=== PATIENT | female | born 1965 | race Caucasian/White ===

== ENCOUNTER 2016-07-22 21:02 | Inpatient (IN) | payer OTHER ==
[~2016-07-22] VITALS: Ht 170.2 cm; Wt 73.6 kg
[~2016-07-22 21:02] MED LIST: DOXY100T PO; HYDR10TA23 PO; MEDR4PAK3 PO
[2016-07-22 21:14] VITALS: BP 126/74; PULSE 72; RESP 18; TEMP 98; O2SAT 99
--- NOTE | 2016-07-22 21:29 | PD ---
HPI Chief Complaint: Pain: Acute or Chronic Time Seen by Provider: 22:00 (Tammi Brooks) Time Seen by Provider: 21:28 (Angie Buchanan MD) Travel History International Travel<30 days: No Contact w/Intl Traveler<30days: No Traveled to known affect area: No (Tammi Brooks) History of Present Illness HPI 51-year-old female is brought to the emergency department for evaluation of left elbow injury. 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 States she landed on her left elbow. Denies head trauma or loss of consciousness. States she has had pain and swelling in the left elbow since this occurred. Pain is aggravated with movement. Denies any alleviating factors. Denies any medical conditions. Denies anticoagulation. Denies , she is post menopausal. No other complaints. (Tammi Brooks) PFSH Past Medical History Medical History: Denies Significant Hx Immunizations Current: Yes Tetanus Vaccination: < 5 Years Influenza Vaccination: No ?: Not Menopausal: Yes : 1 Para: 1 (Tammi Brooks) Past Surgical History Surgical History: No Previous Surgery (Tammi Brooks) Social History Alcohol Use: Yes Tobacco Use: No Substance Use: No (Tammi Brooks) Allergies-Medications (Allergen,Severity, Reaction): Coded Allergies: No Known Allergies (Unverified , 07/22/16) Reported Meds & Prescriptions Reported Meds & Active Scripts Active (Angie Buchanan MD) Review of Systems Except as stated in HPI: all other systems reviewed are Neg (Tammi Brooks) Physical Exam Narrative GENERAL: Well-nourished and well-developed female patient in moderate amount of pain but no acute distress. SKIN: No obvious lacerations or abrasions noted. HEAD: Normocephalic and atraumatic. EYES: No scleral icterus, injection, or drainage. PERRLA. EOMI. No hyphema present. ENT: No septal hematoma or hemotympanum noted. Oropharynx is clear and the airway is patent. NECK: Supple and the trachea is midline. CARDIOVASCULAR: Regular rate and rhythm. RESPIRATORY: Breath sounds are equal bilaterally with no accessory muscle use, wheezing, rhonchi, or crackles. GASTROINTESTINAL: Abdomen is soft, non-tender, and nondistended. MUSCULOSKELETAL: Left elbow with obvious deformity and swelling, tenderness to palpation. Patient guarding left arm, not allowing any movement. No obvious deformities, swelling, cyanosis, or ecchymosis is present throughout the upper and lower extremities. Patient has full range of motion without any signs of neurovascular compromise. NEUROLOGICAL: Awake, alert, and oriented. Normal speech and gait. Cranial nerves are grossly intact. (Tammi Brooks) Data Data Last Documented VS Vital Signs Date Time Temp Pulse Resp B/P Pulse Ox O2 Delivery O2 Flow Rate FiO2 07/22/16 21:14 98.0 72 18 126/74 99 Room Air (Angie Buchanan MD) Orders Ice/Cold Pack (07/22/16 21:28) Complete Blood Count With Diff (07/22/16 21:28) Comprehensive Metabolic Panel (07/22/16 21:28) Prothrombin Time / Inr (Pt) (07/22/16 21:28) Act Partial Throm Time (Ptt) (07/22/16 21:28) Iv Access Insert/Monitor (07/22/16 21:28) Ecg Monitoring (07/22/16 21:28) Oximetry (07/22/16 21:28) Sodium Chloride 0.9% Flush (Ns Flush) (07/22/16 21:30) Elbow, Limited (Ap&Lat) (07/22/16 21:28) Propofol 200 Mg/20 Ml Inj (Diprivan 200 (07/22/16 22:30) Admit Order (Ed Use Only) (07/22/16 22:38) Consult Orthopedic (07/22/16 ) Admit To Inpatient (07/22/16 ) Vital Signs (Adult) Q4H (07/22/16 22:38) Activity Oob With Assistance (07/22/16 22:38) Electrical Instrument Technician / Telemetry .CONTINUOUS (07/22/16 22:38) Diet Npo (07/23/16 Breakfast) Sodium Chloride 0.9% Flush (Ns Flush) (07/22/16 22:45) Sodium Chloride 0.9% Flush (Ns Flush) (07/23/16 09:00) Basic Metabolic Panel (Bmp) (07/23/16 06:00) Complete Blood Count With Diff (07/23/16 06:00) Case Management Consult (07/22/16 22:38) Scd Bilateral/Knee High LIZY.BID (07/22/16 22:38) Naloxone Inj (Narcan Inj) (07/22/16 22:45) Inpatient Certification (07/22/16 ) Hydromorphone Pf Inj (Dilaudid Pf Inj) (07/22/16 22:45) (Angie Buchanan MD) Labs Laboratory Tests Test 07/22/16 07/22/16 21:28 21:37 White Blood Count 9.6 TH/MM3 Red Blood Count 4.11 MIL/MM3 Hemoglobin 13.1 GM/DL Hematocrit 37.8 % Mean Corpuscular Volume 92.1 FL Mean Corpuscular Hemoglobin 31.9 PG Mean Corpuscular Hemoglobin 34.6 % Concent Red Cell Distribution Width 12.1 % Platelet Count 176 TH/MM3 Mean Platelet Volume 8.5 FL Neutrophils (%) (Auto) 70.3 % Lymphocytes (%) (Auto) 21.5 % Monocytes (%) (Auto) 6.5 % Eosinophils (%) (Auto) 1.3 % Basophils (%) (Auto) 0.4 % Neutrophils # (Auto) 6.7 TH/MM3 Lymphocytes # (Auto) 2.1 TH/MM3 Monocytes # (Auto) 0.6 TH/MM3 Eosinophils # (Auto) 0.1 TH/MM3 Basophils # (Auto) 0.0 TH/MM3 CBC Comment DIFF FINAL Differential Comment Sodium Level 140 MEQ/L Potassium Level 3.9 MEQ/L Chloride Level 107 MEQ/L Carbon Dioxide Level 22.0 MEQ/L Anion Gap 11 MEQ/L Blood Urea Nitrogen 11 MG/DL Creatinine 0.81 MG/DL Estimat Glomerular Filtration 75 ML/MIN Rate Random Glucose 98 MG/DL Calcium Level 8.8 MG/DL Total Bilirubin 0.4 MG/DL Aspartate Amino Transf 20 U/L (AST/SGOT) Alanine Aminotransferase 27 U/L (ALT/SGPT) Alkaline Phosphatase 86 U/L Total Protein 6.9 GM/DL Albumin 3.8 GM/DL Prothrombin Time 10.7 SEC Prothromb Time International 1.0 RATIO Ratio Activated Partial 24.8 SEC Thromboplast Time (Angie Buchanan MD) [facility] Medical Decision Making Medical Screen Exam Complete: Yes Emergency Medical Condition: Yes Differential Diagnosis Dislocation versus fracture versus sprain versus contusion Narrative Course 51-year-old female presents to the emergency department for evaluation of left elbow injury status post slip and fall. No head trauma or loss of consciousness. Patient is afebrile, vital signs are stable. She has obvious deformities to her left elbow but her left arm is neurovascularly intact. X-ray imaging shows fracture dislocation of the ulnar humeral and radiocapitellar joints with comminuted fracture of the proximal ulna with avulsion of the coronoid process. After discussion with orthopedic surgeon parts control clerk, decision was made to reduce the fracture dislocation here in the emergency department. She'll be placed in a posterior long-arm splint and admitted to medicine with orthopedic consultation. I discussed the case with my attending physician Dr. Buchanan who is aware of the patients history, physical examination findings, and treatment plan. (Tammi Brooks) Physician Communication Physician Communication I spoke with Dr. Villavicencio, orthopedic surgeon, who reviewed the x-ray images and recommends close reduction with posterior long-arm splint and admission to medicine with orthopedic consultation, likely surgical repair tomorrow. I spoke with Dr. Porras [facility] who agrees to admit the patient to her service. ( Tammi Brooks) Diagnosis Primary Impression: Fracture dislocation of left elbow joint Qualified Code: S42.402A - Fracture dislocation of left elbow joint, closed, initial encounter Admitting Information Admitting Physician Requests: Admit (Tammi Brooks) Scripts No Active Prescriptions or Reported Meds Tammi Brooks Jul 22, 2016 21:29 Angie Buchanan MD Jul 23, 2016 00:01
[2016-07-22] MEDS ORDERED: SODIUM CHLORIDE 0.9% FLUSH 5 ML FLUSH IVF PRN (21:30)
[2016-07-22 22:25] LABS: AUTOMATED NEUTROPHIL # 6.7 TH/MM3 (1.8-7.7); BASOPHIL % 0.4 % (0.0-2.0); EOSINOPHIL # 0.1 TH/MM3 (0-0.4); EOSINOPHIL % 1.3 % (0.0-4.0); HEMATOCRIT 37.8 % (35.0-46.0); HEMO FLAGS DIFF FINAL; LYMPH % 21.5 % (9.0-44.0); LYMPHOCYTE # 2.1 TH/MM3 (1.0-4.8); MEAN CELL VOLUME 92.1 FL (80.0-100.0); MEAN CORPUSCULAR HEMOGLOBIN 31.9 PG (27.0-34.0); MEAN CORPUSCULAR HGB CONC 34.6 % (32.0-36.0); MONO % 6.5 % (0.0-8.0); NEUT % 70.3 % (16.0-70.0); PLATELET COUNT 176 TH/MM3 (150-450); RED BLOOD COUNT 4.11 MIL/MM3 (4.00-5.30); RED CELL DISTRIBUTION WIDTH 12.1 % (11.6-17.2); WHITE BLOOD COUNT 9.6 TH/MM3 (4.0-11.0)
[2016-07-22] MEDS ORDERED: PROPOFOL 200 MG/20 ML AMP IV ONE ×2 (22:30→23:00)
--- NOTE | 2016-07-22 22:31 | RADRPT ---
EXAM DATE/TIME: 07/22/2016 21:44 [facility] COMPARISON: No previous studies available for comparison. INDICATIONS : Left elbow pain post fall. MEDICAL HISTORY : None. SURGICAL HISTORY : None. ENCOUNTER: Initial ACUITY: 1 day PAIN SCORE: 10/10 LOCATION: Left elbow FINDINGS: A fracture dislocation is identified of the left elbow. Comminuted fracture is identified of the prox imal ulna. Small chip fracture is seen along the margin of the radial head. The coronoid process has been avulsed. Radius and ulnar are both posteriorly displaced CONCLUSION: Fracture/dislocation of the ulnohumeral and radiocapitellar joints. Comminuted fracture of the proximal ulna with avulsion of the coronoid process. Santy Florez MD on July 22, 2016 at 22:22 Board Certified Radiologist. This report was verified electronically.
[2016-07-22 22:39] LABS: APTT (PATIENT) 24.8 SEC (24.3-30.1); PROTHROMBIN TIME - PATIENT 10.7 SEC (9.8-11.6)
[2016-07-22] MEDS ORDERED: NALOXONE HCL 0.4 MG/ML AMP IV PRN (22:45)
[2016-07-22] MEDS ORDERED: SODIUM CHLORIDE 0.9% FLUSH 5 ML FLUSH FLUSH PRN (22:45)
[2016-07-22] MEDS ORDERED: HYDROmorphone HCL PF 1 MG/ML VIAL IV PUSH PRN (22:45)
[2016-07-22 23:02] LABS: ANION GAP 11 MEQ/L (5-15); AST (GOT) 20 U/L (15-37); BLOOD UREA NITROGEN 11 MG/DL (7-18); CHLORIDE 107 MEQ/L (98-107); GLOMERULAR FILTRATION RATE 75 ML/MIN (>89); POTASSIUM 3.9 MEQ/L (3.5-5.1); SODIUM (NA) 140 MEQ/L (136-145)
[2016-07-22 23:05] LABS: ALKALINE PHOSPHATASE 86 U/L (45-117); ALT (GPT) 27 U/L (10-53); TOTAL BILIRUBIN ADULT 0.4 MG/DL (0.2-1.0)
[2016-07-22 23:31] VITALS: BP 112/64; PULSE 80; RESP 18; O2SAT 98
--- NOTE | 2016-07-23 00:02 | RADRPT ---
EXAM DATE/TIME: 07/22/2016 22:59 [facility] COMPARISON: ELBOW LEFT LIMITED (AP & LAT), July 22, 2016, 21:44. INDICATIONS : Post reduction of left elbow fracture and dislocation. MEDICAL HISTORY : None. SURGICAL HISTORY : None. ENCOUNTER: Subsequent ACUITY: 1 day PAIN SCORE: 10/10 LOCATION: Left elbow FINDINGS: There is persistent anterior dislocation of the distal humeral trochlea and capitellum with comminute d fractures of the proximal ulna and radial head noted. Overlying soft tissue swelling. CONCLUSION: 1. Persistent fracture dislocation at the elbow joint with joint effusion. Randal Dougherty MD on July 22, 2016 at 23:58 Board Certified Radiologist. This report was verified electronically.
--- NOTE | 2016-07-23 00:03 | RADRPT ---
EXAM DATE/TIME: 07/22/2016 23:10 [facility] COMPARISON: No previous studies available for comparison. INDICATIONS : Post reduction of left elbow fracture and dislocation. MEDICAL HISTORY : None. SURGICAL HISTORY : None. ENCOUNTER: Subsequent ACUITY: 1 day PAIN SCORE: 10/10 LOCATION: Left elbow FINDINGS: There is improvement in alignment at the previous dislocation of the elbow with anterior subluxation of the distal humerus remaining at the humeroulnar joint. The radial head remains dislocated with a p ortion of the radial head avulsed. Positive joint effusion. CONCLUSION: 1. Improvement in alignment of fracture dislocation left elbow. Randal Dougherty MD on July 23, 2016 at 0:01 Board Certified Radiologist. This report was verified electronically.
--- NOTE | 2016-07-23 00:15 | HHI.HP ---
[facility] Service [facility] Primary Care Physician No Primary Care Physician Admission Diagnosis Left Elbow Fracture Dislocation Diagnoses: Chief Complaint: Left elbow pain Travel History International Travel<30 Days: No Contact w/Intl Traveler <30 Da: No Traveled to Known Affected Are: No History of Present Illness History taken from patient and the physician reviewed 51-year-old female with no significant history presented to the ED after slipping and falling on water and landing on her left elbow. She states she was at work and walked around a corner and slipped on a puddle of water and landed on her left elbow. She states the pain is throbbing and not currently controlled. The pain is made worse with any movement. She denies any chest pain, shortness of breath, fever or chills. Elbow was unable to be reduced by ER physician. Review of Systems Constitutional: DENIES: Fever Respiratory: DENIES: Cough, Sputum production, Shortness of breath Cardiovascular: DENIES: Chest pain, Lower Extremity Edema Gastrointestinal: DENIES: Constipation, Diarrhea, Nausea, Vomiting Musculoskeletal: COMPLAINS OF: Joint pain, Joint Swelling, DENIES: Back pain, Neck pain Integumentary: DENIES: Rash Hematologic/lymphatic: DENIES: Lymphadenopathy Immunologic/allergic: DENIES: Urticaria Neurologic: DENIES: Headache Past Family Social History Past Medical History Patient denies any medical history Past Surgical History Patient denies any surgical history Reported Medications Reported Meds & Active Scripts Active Allergies: Coded Allergies: No Known Allergies (Unverified , 07/22/16) Active Ordered Medications Current Medications Medications (Trade) Dose Ordered Sig/Reed Route Start Time Stop Time Status Last Admin (NS Flush) 2 ml UNSCH PRN FLUSH 07/22/16 22:45 (NS Flush) 2 ml BID FLUSH 07/23/16 09:00 (Narcan Inj) 0.4 mg UNSCH PRN IV 07/22/16 22:45 (Dilaudid Pf Inj) 1 mg Q4H PRN IV PUSH 07/22/16 22:45 07/22/16 23:32 Family History Grandfather: DM, heart disease Social History Tobacco use: Denies, quit 1989 Alcohol use: Occasionally Illicit drug use: Denies Physical Exam Vital Signs Vital Signs Date Time Temp Pulse Resp B/P Pulse Ox O2 Delivery O2 Flow Rate FiO2 07/22/16 21:14 98.0 72 18 126/74 99 Room Air Physical Exam GENERAL: This is a well-nourished, well-developed patient, in no apparent distress. SKIN: No rashes. Left elbow wrapped in a splint and Luis E bandage. HEAD: Atraumatic. Normocephalic. No temporal or scalp tenderness. EYES: Pupils equal round and reactive. Extraocular motions intact. No scleral icterus. No injection or drainage. ENT: Nose without bleeding, purulent drainage or septal hematoma. Airway patent. NECK: Trachea midline. No JVD or lymphadenopathy. Supple, nontender, no meningeal signs. CARDIOVASCULAR: Regular rate and rhythm without murmurs, gallops, or rubs. RESPIRATORY: Clear to auscultation. Breath sounds equal bilaterally. No wheezes , rales, or rhonchi. GASTROINTESTINAL: Abdomen soft, non-tender, nondistended. No guarding. MUSCULOSKELETAL: Extremities without clubbing, cyanosis, or edema. Left elbow in splint. Visible swelling. NEUROLOGICAL: Awake and alert. Motor and sensory grossly within normal limits apart from weakness due to fracture. Normal speech. Laboratory Laboratory Tests Test 07/22/16 07/22/16 21:28 21:37 White Blood Count 9.6 Red Blood Count 4.11 Hemoglobin 13.1 Hematocrit 37.8 Mean Corpuscular Volume 92.1 Mean Corpuscular Hemoglobin 31.9 Mean Corpuscular Hemoglobin 34.6 Concent Red Cell Distribution Width 12.1 Platelet Count 176 Mean Platelet Volume 8.5 Neutrophils (%) (Auto) 70.3 Lymphocytes (%) (Auto) 21.5 Monocytes (%) (Auto) 6.5 Eosinophils (%) (Auto) 1.3 Basophils (%) (Auto) 0.4 Neutrophils # (Auto) 6.7 Lymphocytes # (Auto) 2.1 Monocytes # (Auto) 0.6 Eosinophils # (Auto) 0.1 Basophils # (Auto) 0.0 CBC Comment DIFF FINAL Differential Comment Sodium Level 140 Potassium Level 3.9 Chloride Level 107 Carbon Dioxide Level 22.0 Anion Gap 11 Blood Urea Nitrogen 11 Creatinine 0.81 Estimat Glomerular Filtration 75 Rate Random Glucose 98 Calcium Level 8.8 Total Bilirubin 0.4 Aspartate Amino Transf 20 (AST/SGOT) Alanine Aminotransferase 27 (ALT/SGPT) Alkaline Phosphatase 86 Total Protein 6.9 Albumin 3.8 Prothrombin Time 10.7 Prothromb Time International 1.0 Ratio Activated Partial 24.8 Thromboplast Time Result Diagram: 07/22/16212707/22/162127 Imaging Last Impressions Elbow X-Ray 07/22/16 2302 Signed Impressions: Service Date/Time: Friday, July 22, 2016 23:10 - CONCLUSION: 1. Improvement in alignment of fracture dislocation left elbow. Randal Dougherty MD Upper Extremity CT 07/22/16 0000 Signed Impressions: Service Date/Time: July 00:25 - CONCLUSION: 1. Posterior dislocation of the radial head at the radiocapitellar joint with an avulsed radial head bone fragment present anterior to the capitellum. 2. Abnormal widening of the humeroulnar joint without current dislocation. Comminuted fracture proximal ulna. Distal humerus intact. Randal Dougherty MD Last Impressions Elbow X-Ray 07/22/162127 Signed Impressions: Service Date/Time: Friday, July 22, 2016 21:44 - CONCLUSION: Fracture/dislocation of the ulnohumeral and radiocapitellar joints. Comminuted fracture of the proximal ulna with avulsion of the coronoid process. Santy Florez MD Assessment and Plan Problem List: (1) Fracture dislocation of left elbow joint ICD Code: S42.402A Status: Acute Assessment and Plan 51-year-old female with no medical history presented with: Fracture dislocation of left elbow joint Images: Elbow x-ray shows Fracture/dislocation of the ulnohumeral and radiocapitellar joints. Comminuted fracture of the proximal ulna with avulsion of the coronoid process. CT upper extremity shows Posterior dislocation of the radial head at the radiocapitellar joint with an avulsed radial head bone fragment present anterior to the capitellum. 2. Abnormal widening of the humeroulnar joint without current dislocation. Comminuted fracture proximal ulna. Distal humerus intact. -Orthopedic consult -Pain management with IV Dilaudid -Continue ice cough to arm DVT prophylaxis: SCDs Written by Adriana Barbel [employer], acting as scribe for Dr. Porras on 07/23/16 at 0239. The documentation accurately reflects the work performed [id number] and decisions made by me and the physician Dr Porras on 07/23/16. The documentation accurately reflects the work performed [id number] by me on at 0239 Discussed Condition With Patient and ED physician Physician Certification 2 Midnight Certification Type: Admission for Inpatient Services Order for Inpatient Services The services are ordered in accordance with Medicare regulations or non- Medicare payer requirements, as applicable. In the case of services not specified as inpatient-only, they are appropriately provided as inpatient services in accordance with the 2-midnight benchmark. Estimated LOS (days): 2 days is the estimated time the patient will need to remain in the hospital, assuming treatment plan goals are met and no additional complications. Post-Hospital Plan: Home Problem Qualifiers (1) Fracture dislocation of left elbow joint: Qualified Code: S42.402A - Fracture dislocation of left elbow joint, closed, initial encounter Adriana Bush Jul 23, 2016 00:15 Trisha Porras MD Jul 23, 2016 08:14
--- NOTE | 2016-07-23 00:42 | PD ---
Physical Exam Date Seen by Provider: Jul 23, 2016 Time Seen by Provider: 23:45 Narrative GENERAL: Well-developed well-nourished female in no acute distress no respiratory distress NECK: Supple, trachea midline. No JVD or lymphadenopathy. CARDIOVASCULAR: Regular rate and rhythm without murmurs, gallops, or rubs. RESPIRATORY: Breath sounds equal bilaterally. No accessory muscle use. MUSCULOSKELETAL: No cyanosis, with deformity and marked edema of the left elbow distally extremity remains neurovascular tendon intact capillary refill brisk and less than 2 seconds per digit radial and ulnar pulses 2+ to palpation. Data Data Last Documented VS Vital Signs Date Time Temp Pulse Resp B/P Pulse Ox O2 Delivery O2 Flow Rate FiO2 07/22/16 21:14 98.0 72 18 126/74 99 Room Air Orders Ice/Cold Pack (07/22/16 21:28) Complete Blood Count With Diff (07/22/16 21:28) Comprehensive Metabolic Panel (07/22/16 21:28) Prothrombin Time / Inr (Pt) (07/22/16 21:28) Act Partial Throm Time (Ptt) (07/22/16 21:28) Iv Access Insert/Monitor (07/22/16 21:28) Ecg Monitoring (07/22/16 21:28) Oximetry (07/22/16 21:28) Sodium Chloride 0.9% Flush (Ns Flush) (07/22/16 21:30) Elbow, Limited (Ap&Lat) (07/22/16 21:28) Propofol 200 Mg/20 Ml Inj (Diprivan 200 (07/22/16 22:30) Admit Order (Ed Use Only) (07/22/16 22:38) Admit To Inpatient (07/22/16 ) Vital Signs (Adult) Q4H (07/22/16 22:38) Activity Oob With Assistance (07/22/16 22:38) Tool Crib Supervisor / Telemetry .CONTINUOUS (07/22/16 22:38) Sodium Chloride 0.9% Flush (Ns Flush) (07/22/16 22:45) Sodium Chloride 0.9% Flush (Ns Flush) (07/23/16 09:00) Basic Metabolic Panel (Bmp) (07/23/16 06:00) Complete Blood Count With Diff (07/23/16 06:00) Case Management Consult (07/22/16 22:38) Scd Bilateral/Knee High LIZY.BID (07/22/16 22:38) Naloxone Inj (Narcan Inj) (07/22/16 22:45) Inpatient Certification (07/22/16 ) Hydromorphone Pf Inj (Dilaudid Pf Inj) (07/22/16 22:45) Labs Laboratory Tests Test 07/22/16 07/22/16 21:28 21:37 White Blood Count 9.6 TH/MM3 Red Blood Count 4.11 MIL/MM3 Hemoglobin 13.1 GM/DL Hematocrit 37.8 % Mean Corpuscular Volume 92.1 FL Mean Corpuscular Hemoglobin 31.9 PG Mean Corpuscular Hemoglobin 34.6 % Concent Red Cell Distribution Width 12.1 % Platelet Count 176 TH/MM3 Mean Platelet Volume 8.5 FL Neutrophils (%) (Auto) 70.3 % Lymphocytes (%) (Auto) 21.5 % Monocytes (%) (Auto) 6.5 % Eosinophils (%) (Auto) 1.3 % Basophils (%) (Auto) 0.4 % Neutrophils # (Auto) 6.7 TH/MM3 Lymphocytes # (Auto) 2.1 TH/MM3 Monocytes # (Auto) 0.6 TH/MM3 Eosinophils # (Auto) 0.1 TH/MM3 Basophils # (Auto) 0.0 TH/MM3 CBC Comment DIFF FINAL Differential Comment Sodium Level 140 MEQ/L Potassium Level 3.9 MEQ/L Chloride Level 107 MEQ/L Carbon Dioxide Level 22.0 MEQ/L Anion Gap 11 MEQ/L Blood Urea Nitrogen 11 MG/DL Creatinine 0.81 MG/DL Estimat Glomerular Filtration 75 ML/MIN Rate Random Glucose 98 MG/DL Calcium Level 8.8 MG/DL Total Bilirubin 0.4 MG/DL Aspartate Amino Transf 20 U/L (AST/SGOT) Alanine Aminotransferase 27 U/L (ALT/SGPT) Alkaline Phosphatase 86 U/L Total Protein 6.9 GM/DL Albumin 3.8 GM/DL Prothrombin Time 10.7 SEC Prothromb Time International 1.0 RATIO Ratio Activated Partial 24.8 SEC Thromboplast Time [facility] Medical Record Reviewed: Yes Supervised Visit with PETE: Yes Interpretation(s) Vital Signs Date Time Temp Pulse Resp B/P Pulse Ox O2 Delivery O2 Flow Rate FiO2 07/22/16 21:14 98.0 72 18 126/74 99 Room Air CBC & BMP Diagram 07/22/16 21:28 Last Impressions Elbow X-Ray 07/22/168 Signed Impressions: Service Date/Time: Friday, July 22, 2016 21:44 - CONCLUSION: Fracture/dislocation of the ulnohumeral and radiocapitellar joints. Comminuted fracture of the proximal ulna with avulsion of the coronoid process. Santy Florez MD Elbow X-Ray 07/22/16 0000 Signed Impressions: Service Date/Time: Friday, July 22, 2016 22:59 - CONCLUSION: 1. Persistent fracture dislocation at the elbow joint with joint effusion. Randal Dougherty MD Differential Diagnosis Fracture dislocation neurovascular tendon injury Narrative Course Patient with marked edema and soft tissue swelling of the left elbow after a non -syncopal slip and fall on a wet floor at work; imaging study shows comminuted fracture dislocation of the left elbow Case discussed with on-call orthopedist requests patient to have reduction of the fracture dislocation in the emergency department After informed verbal and written consent for procedural sedation was accomplished with probable fall and then procedure for reduction of the fracture dislocation was used with traction countertraction and then gentle flexion however the proximal all fracture versus unstable is difficult to obtain satisfactory joint reduction--- this was discussed with on-call orthopedist who recommends splinting and CT CT of the elbow was performed with evidence of improved alignment of the fracture dislocation however persistent posterior dislocation with large joint effusion; post procedure patient remains neurovascular tendon intact with brisk capillary refill less than 2 seconds per digit and 2+ palpable radial and ulnar pulses of the left upper extremity. Patient is aware of plan for admission for surgical intervention and repair of fracture dislocation. Procedures Procedure Narrative After the risks and benefits were discussed the following procedure was performed: MODERATE SEDATION: The patient was placed on a cardiac cath rn and pulse oximetry. An ambu bag and suction was immediately available at bedside. The patient was monitored by the nurse. Oxygen saturation, heart rate and blood pressure were monitored. Procedural sedation was achieved using 200 mg and then on re attempt at closed reduction of the elbow and additional 100 mg of propofol was administered. The patient was observed until awake and alert. Procedural Sedation time in attendance was 45 minutes. Physician Communication Physician Communication discussed with review of images with Dr Syed --admit to medicine apply splint obtain CT elbow tonight and consult for surgical repair in the AM by Dr Hay Diagnosis Primary Impression: Fracture dislocation of left elbow joint Qualified Code: S42.402A - Fracture dislocation of left elbow joint, closed, initial encounter Admitting Information Admitting Physician Requests: Admit Scripts No Active Prescriptions or Reported Meds Angie Buchanan MD Jul 23, 2016 00:42
--- NOTE | 2016-07-23 01:03 | RADRPT ---
EXAM DATE/TIME: 07/23/2016 00:25 [facility] COMPARISON: No previous studies available for comparison. INDICATIONS : Fell on left elbow; dislocated per x-ray RADIATION DOSE: 42.57 CTDIvol (mGy) MEDICAL HISTORY : None SURGICAL HISTORY : None. ENCOUNTER: Initial ACUITY: 1 day PAIN SCALE: 9/10 LOCATION: Left elbow TECHNIQUE: Volumetric scanning of the elbow was performed. Using automated exposure control and adjustment of t he mA and/or kV according to patient size, radiation dose was kept as low as reasonably achievable to obtain optimal diagnostic quality images. FINDINGS: The radial head is posteriorly dislocated at the radiocapitellar joint with an avulsion through the a nterior aspect of the radial head. The avulsed bone fragment is anterior to the capitellum. There is some abnormal widening of the joint between the distal humerus trochlea and proximal ulna bu t no current dislocation. There is a comminuted fracture of the proximal ulna. Positive elbow joint e ffusion with extensive overlying soft tissue swelling. CONCLUSION: 1. Posterior dislocation of the radial head at the radiocapitellar joint with an avulsed radial head bone fragment present anterior to the capitellum. 2. Abnormal widening of the humeroulnar joint without current dislocation. Comminuted fracture proxim al ulna. Distal humerus intact. Randal Dougherty MD on July 23, 2016 at 0:53 Board Certified Radiologist. This report was verified electronically.
[2016-07-23] MEDS: HYDROmorphone HCL PF 1 MG/ML VIAL IV PUSH PRN ×2 (02:53→06:13)
[2016-07-23 03:53] LABS: AUTOMATED NEUTROPHIL # 7.7 TH/MM3 (1.8-7.7); BASOPHIL % 0.2 % (0.0-2.0); EOSINOPHIL % 0.3 % (0.0-4.0); HEMATOCRIT 35.9 % (35.0-46.0); HEMO FLAGS DIFF FINAL; LYMPH % 17.6 % (9.0-44.0); LYMPHOCYTE # 1.8 TH/MM3 (1.0-4.8); MEAN CORPUSCULAR HEMOGLOBIN 32.1 PG (27.0-34.0); MEAN CORPUSCULAR HGB CONC 34.9 % (32.0-36.0); MONO % 6.6 % (0.0-8.0); NEUT % 75.3 % (16.0-70.0); PLATELET COUNT 176 TH/MM3 (150-450); RED CELL DISTRIBUTION WIDTH 12.2 % (11.6-17.2); WHITE BLOOD COUNT 10.2 TH/MM3 (4.0-11.0)
[2016-07-23 04:18] LABS: BICARBONATE 26.3 MEQ/L (21.0-32.0); POTASSIUM 4.2 MEQ/L (3.5-5.1)
[2016-07-23 06:19] VITALS: BP 130/62; PULSE 62; RESP 18; O2SAT 96
--- NOTE | 2016-07-23 07:34 | PD.ORT.PN ---
Subjective Subjective Remarks s/p fall at work left elbow pain. no other complaints. Objective Vitals Vital Signs Date Time Temp Pulse Resp B/P Pulse Ox O2 Delivery O2 Flow Rate FiO2 07/23/16 06:19 62 18 130/62 96 Room Air 07/22/16 23:31 80 18 112/64 98 Room Air 07/22/16 21:14 98.0 72 18 126/74 99 Room Air Result Diagram: 07/23/16 0329 07/23/16 0329 Other Results Laboratory Tests Test 07/22/16 21:37 Prothrombin Time 10.7 SEC (9.8-11.6) Prothromb Time International 1.0 RATIO Ratio Imaging Last 24 hours Impressions Elbow X-Ray 07/22/162 Signed Impressions: Service Date/Time: Friday, July 22, 2016 23:10 - CONCLUSION: 1. Improvement in alignment of fracture dislocation left elbow. Randal Dougherty MD Elbow X-Ray 07/22/162127 Signed Impressions: Service Date/Time: Friday, July 22, 2016 21:44 - CONCLUSION: Fracture/dislocation of the ulnohumeral and radiocapitellar joints. Comminuted fracture of the proximal ulna with avulsion of the coronoid process. Santy Florez MD Objective Remarks LUE: +long arm splint. nvi. Assessment & Plan Assessment and Plan 1) Left Elbow dislocation with radial head and proximal ulna fxs -maintain splint -npo -sign consents -possible surgery today Nikunj Lee Jul 23, 2016 07:34
[2016-07-23 08:17] VITALS: BP 109/63; PULSE 68; RESP 20; O2SAT 97
[2016-07-23] MEDS: SODIUM CHLORIDE 0.9% FLUSH 5 ML FLUSH FLUSH SCH ×2 (08:53→21:04)
[2016-07-23] MEDS ORDERED: HYDROmorphone HCL PF 2 MG/ML VIAL ONE (09:37)
[2016-07-23] MEDS ORDERED: FAMOTIDINE 20 MG/2 ML VIAL ONE (09:37)
[2016-07-23] MEDS ORDERED: ONDANSETRON HCL 4 MG/2 ML VIAL ONE (09:37)
[2016-07-23] MEDS ORDERED: MIDAZOLAM HCL 2 MG/2 ML VIAL ONE (09:37)
--- NOTE | 2016-07-23 09:56 | HHI.PR ---
Subjective Remarks Follow-up left elbow fracture 07/23/16-patient seen and examined, nothing by mouth pending surgical repair. Pain currently controlled. Objective Vitals Vital Signs Date Time Temp Pulse Resp B/P Pulse Ox O2 Delivery O2 Flow Rate FiO2 07/23/16 08:17 68 20 109/63 97 Room Air 07/23/16 07:00 20 07/23/16 06:19 62 18 130/62 96 Room Air 07/22/16 23:31 80 18 112/64 98 Room Air 07/22/16 21:14 98.0 72 18 126/74 99 Room Air Result Diagram: 07/23/16 0329 07/23/16 0329 Imaging Last Impressions Elbow X-Ray 07/22/16 2302 Signed Impressions: Service Date/Time: Friday, July 22, 2016 23:10 - CONCLUSION: 1. Improvement in alignment of fracture dislocation left elbow. Randal Dougherty MD Upper Extremity CT 07/22/16 0000 Signed Impressions: Service Date/Time: July 00:25 - CONCLUSION: 1. Posterior dislocation of the radial head at the radiocapitellar joint with an avulsed radial head bone fragment present anterior to the capitellum. 2. Abnormal widening of the humeroulnar joint without current dislocation. Comminuted fracture proximal ulna. Distal humerus intact. Randal Dougherty MD Objective Remarks GENERAL: NAD SKIN: Warm and dry. HEAD: Normocephalic. EYES: No scleral icterus. No injection or drainage. NECK: Supple, trachea midline. No JVD or lymphadenopathy. CARDIOVASCULAR: Regular rate and rhythm without murmurs, gallops, or rubs. RESPIRATORY: Breath sounds equal bilaterally. No accessory muscle use. GASTROINTESTINAL: Abdomen soft, non-tender, nondistended. MUSCULOSKELETAL: No cyanosis, or edema. Left elbow in splint-neurovascular intact BACK: Nontender without obvious deformity. No CVA tenderness. A/P Problem List: (1) Fracture dislocation of left elbow joint ICD Code: S42.402A Status: Acute Assessment and Plan 51-year-old female with Left elbow fracture: Currently nothing by mouth, orthopedic surgery consulted for open reduction internal fixation today 07/23/16. DVT prophylaxis post procedure. Continue current pain management DVT prophylaxis; per orthopedic surgery Problem Qualifiers (1) Fracture dislocation of left elbow joint: Qualified Code: S42.402A - Fracture dislocation of left elbow joint, closed, initial encounter Vance Stephen MD Jul 23, 2016 09:56
[2016-07-23] MEDS ORDERED: GENTAMICIN SULFATE 80 MG/2 ML VIAL ONE (10:21)
[2016-07-23] MEDS ORDERED: SODIUM CHLOR 0.9% 250 ML INJ 250 ML ONE (10:21)
[2016-07-23] MEDS ORDERED: ceFAZolin 2 GM PREMIX 50 ML ONE (10:21)
[2016-07-23] MEDS ORDERED: VANCOMYCIN HCL 1000 MG VIAL ONE (10:21)
[2016-07-23] MEDS ORDERED: ACETAMINOPHEN 1000 MG/100 ML VIAL IV ONE (10:40)
[2016-07-23] MEDS ORDERED: LACTATED RINGER'S 1000 ML INJ 1,000 ML IV ONE (12:00)
[2016-07-23] MEDS ORDERED: PROPOFOL 200 MG/20 ML AMP IV ONE (12:00)
[2016-07-23] MEDS ORDERED: NEOSTIGMINE 3 MG/3 ML SYR IV ONE (12:00)
--- NOTE | 2016-07-23 12:22 | MB ---
cc: AUREA MICHELLE DATE OF ADMISSION 07/22/2016 DATE OF CONSULTATION 07/23/2016 REASON FOR CONSULTATION Left elbow fracture-dislocation. CONSULTING PHYSICIAN Dr. Vance Stephen ALAN Blake is a 51-year-old female who was at work. She slipped and fell on a wet floor. She landed on her left arm. She had immediate pain and deformity. She was able to stand and ambulate. She presented to the emergency room where x-rays revealed a fracture-dislocation of her left elbow. She underwent a closed reduction in the emergency department. She is currently awake and alert in the emergency department. Only complaint is her left elbow. She states that a coworker had spilled some water and had mopped it up but the floor was still wet. She did not realize the floor was wet before she slipped. She denies dizziness, syncope or loss of consciousness. PAST MEDICAL HISTORY ILLNESSES None. SURGERIES None. ALLERGIES None. SOCIAL HISTORY The patient quit smoking in 1989. She drinks alcohol occasionally. She denies drug use. FAMILY HISTORY This positive for diabetes and heart disease in her grandfather. REVIEW OF SYSTEMS The patient denies headache, visual changes, neck pain, chest pain, shortness of breath, abdominal pain, nausea or vomiting or recent weight loss. She complains of left elbow pain. PHYSICAL EXAMINATION GENERAL: The patient is a well-developed, well-nourished 51-year female in no acute distress. She is awake and alert. She is alert and oriented x 3. VITAL SIGNS: Temperature 98.0, pulse 68, respirations 20, blood pressure 109/63, O2 sat 97% on room air. HEAD: The patient is normocephalic. Pupils are equal. NECK: Soft, nontender. Trachea is midline. ABDOMEN: Soft, nontender, nondistended. EXTREMITIES: Examination of the left arm reveals minimal tenderness around her shoulder, wrist and fingers. She has intact sensation in all fingers. She has swelling of the elbow. She has pain with any elbow motion. Forearm compartments are soft. Radial pulses palpable. Sensation is intact in all fingers. Examination of right arm reveals no pain with shoulder, elbow or wrist motion. Skin is intact. Radial pulses palpable. Sensation is intact in all fingers. Nitrating Acid Mixer strength is +5. Examination of the bilateral lower extremities reveals no significant pain with hip, knee, or ankle motion. Skin is intact in both feet. Dorsalis pedis pulses are palpable. X-RAYS X-rays and CT scan of the left elbow were reviewed. X-rays reveal a comminuted proximal ulnar fracture. There appears to be an avulsion of the coronoid process. There is also a radial head fracture dislocation. IMPRESSION Fracture-dislocation of the left elbow. PLAN The treatment options were discussed with the patient. At this point I would recommend open reduction, internal fixation of the proximal ulna. I evaluated the radial head. The radial head fragment may be excised or possibly stabilized with internal fixation. She will she also need open reduction of the radial head. The risks of surgery include bleeding, infection, injury to arteries, nerves or blood vessels, injury to ulnar nerve, elbow dislocation, elbow arthritis, painful hardware, elbow stiffness, loss of motion, as well as medical complications including blood clot, stroke, heart attack and . All questions were answered. I will plan on surgery today. A mid-level provider in my office (nurse practitioner or physician press assistant and feeder) may see this patient on follow-up visits and continue to implement the objectives of this plan including: Starting or adjusting medications, injections , cast application, orthotics, brace application, physical therapy, radiological studies (including x-ray, MRI, CT, ultrasound, bone scan), vascular studies, neurologic studies, specialist consultation, and proceeding with surgical management, as appropriate. MD MANDY Dao/ESTELITA /10:48 AM /12:15 PM ERIKA
[2016-07-23] MEDS ORDERED: Post-op Orders (for Pharmacy) MISC XX ONE (12:30)
--- NOTE | 2016-07-23 12:36 | PD.OP ---
cc: Kai Thibodeaux MD Operative Report Date of Surgery: Jul 23, 2016 Preoperative Diagnosis: Left proximal ulna fracture, left radial head fracture, left elbow dislocation Postoperative Diagnosis: Procedure: Open treatment left elbow dislocation, open reduction internal fixation left radial head, open reduction internal fixation left proximal ulna Anesthesia: Gen. Surgeon: Kai Thibodeaux Stitcher Tape Controlled Machine(s): PAM Willis PA-C The surgical procedure was assisted by my physician assistant merchandiser. My P.A. presence was necessary throughout this case for the manipulation and positioning of the surgical extremity. My P.A. was assisting me throughout the duration of this procedure. The skill set of a physician assistant merchandiser was medically necessary to complete this procedure. During the surgical case the surgical first assistant was working at the back table and the physician assistant merchandiser was directly assisting me. Operation and Findings: Patient was seen and evaluated preoperatively. Patient was found to have a displaced fracture dislocation of the left olecranon with radial head fracture. The risk and benefits of the surgery were discussed in depth and informed consent was obtained. Risk of surgery include bleeding, infection, painful hardware, wound, case, elbow stiffness, elbow dislocation, loss of motion, elbow arthritis, injuries to arteries nerves or blood vessels, weakness and numbness of hand, as well as medical complications associated with general anesthesia. All questions were answered. Patient was brought to operating room. IV sedation and anesthesia were administered. Patient was placed into a lateral decubitus position. Timeout procedure was performed. IV antibiotics were administered prior to incision. The operative arm was prepped with alcohol followed by Hibiclens and draped in usual sterile fashion. Procedure began with a 6 inch incision over the olecranon. Subcutaneous tissue dissected with Bovie. Fracture site was visualized. Fascia was elevated around the fracture site. There was mild comminution of the fracture site. Fracture fragments were gently manipulated. A fracture tenaculum was used to aid in reduction. Multiple K wires were used for provisional fixation. Next attention was turned to the radial head. The radial head was visualized. The radial head was in 3 fragments. The largest fragment was still attached to the radial shaft. The other 2 fragments consisted of approximate 40% of the radial head. Radial head fragments were reduced. K wires were used to hold provisional fixation. 2 Synthes 2.5 headless screws were placed across the fracture. Good compression was obtained. 2 additional Arthrex bioabsorbable pins were placed across the fracture fragments. Fluoroscopy confirmed excellent alignment of the radial head. The radial head was now reduced. Attention was now turned back to the ulna. The reduction of the ulna was confirmed. A Synthes proximal plate was selected. Plate was provisionally held with K wires 3.5 cortical screws were used to compress plate to bone. Multiple cortical screws were placed in the ulna shaft. Multiple locking screws were placed in the proximal ulna. All screws were predrilled and premeasured for appropriate length. Additional 2.7 cortical screws were placed outside of the plate to capture additional metaphyseal fragments. K wires were removed. Final fluoroscopy revealed excellent of fractures well-placed hardware. Articular surface appeared to be in near anatomic alignment. The elbow joint and radiocapitellar joints were concentrically reduced. Wound was now thoroughly irrigated. Incision was now closed with #1 Vicryl, 3-0 Vicryl, and diallo. Sterile dressings were applied. Patient's placed a well molded well-padded splint. Patient was transferred to recovery in stable condition. Kai Thibodeaux MD Jul 23, 2016 12:36
[2016-07-23] MEDS ORDERED: DO NOT ADM ANY ANTICOAGULANT DRUGS XX PRN (13:00)
[2016-07-23] MEDS ORDERED: *MEPERIDINE 25 MG INJ VIAL PERIprocedural Use ONLY ONE (13:13)
[2016-07-23] MEDS ORDERED: *morphine SULFATE 8 MG/ML PERIprocedure ONLY ONE ×2 (13:44→14:21)
[2016-07-23] MEDS: KETOROLAC TROMETHAMINE 30 MG/ML (IVP) VIAL IV PUSH SCH ×2 (13:44→21:03)
--- NOTE | 2016-07-23 14:37 | RADRPT ---
EXAM DATE/TIME: 07/23/2016 12:16 [facility] COMPARISON: No previous studies available for comparison. INDICATIONS : ORIF left elbow. MEDICAL HISTORY : None. SURGICAL HISTORY : None. ENCOUNTER: Subsequent ACUITY: 2 days PAIN SCORE: Non-responsive. LOCATION: Left elbow. FINDINGS: Two view left elbow demonstrates the olecranon has been fixated with a posterior plate. There are tw o screws across the radial head fracture. The radiocapitellar joints now well aligned. Distal humer us is unremarkable. CONCLUSION: Fracture fixation with what appears to be excellent alignment. Scot Kenny MD on July 23, 2016 at 13:58 Board Certified Radiologist. This report was verified electronically.
[2016-07-23] MEDS ORDERED: fentaNYL CITRATE 250 MCG/5 ML AMP ONE (14:47)
[2016-07-23] MEDS: ceFAZolin 2 GM PREMIX 50 ML IV SCH ×2 (14:47→21:03)
[2016-07-23 15:45] VITALS: BP 129/74; PULSE 66; RESP 18; TEMP 95.5; O2SAT 98
[2016-07-23] MEDS: ACETAMINOPHEN/HYDROcodone 325 MG/10 MG TAB PO PRN ×2 (16:19→20:43)
[2016-07-23 19:39] VITALS: BP 105/70; PULSE 93; RESP 18; TEMP 96; O2SAT 96
[2016-07-23] MEDS: MORPHINE SULFATE 4 MG/ML INJ IV PUSH PRN (22:42)
--- NOTE | 2016-07-23 23:36 | EKG ---
Date Performed: 07/23/2016 Time Performed: 10:38:14 PTAGE: 51 years EKG: SINUS BRADYCARDIA WITH SINUS ARRHYTHMIA BORDERLINE ECG NO PREVIOUS TRACING DOCTOR: Jeramy Encarnacion Interpretating Date/Time 07/23/2016 23:34:34
[2016-07-24] VITALS: BP 99/59; PULSE 84; RESP 18; TEMP 97.3; O2SAT 96
[2016-07-24 04:00] VITALS: BP 116/67; PULSE 75; RESP 18; TEMP 97.7; O2SAT 96
[2016-07-24] MEDS: KETOROLAC TROMETHAMINE 30 MG/ML (IVP) VIAL IV PUSH SCH (05:41)
[2016-07-24] MEDS: ceFAZolin 2 GM PREMIX 50 ML IV SCH (05:41)
[2016-07-24] MEDS: ACETAMINOPHEN/HYDROcodone 325 MG/10 MG TAB PO PRN (05:48)
--- NOTE | 2016-07-24 07:10 | PD.ORT.PN ---
Subjective Subjective Remarks POD 1 s/p ORIF left ulna and radial head doing well. pain controlled. Objective Vitals Vital Signs Date Time Temp Pulse Resp B/P Pulse Ox O2 Delivery O2 Flow Rate FiO2 07/24/16 04:00 97.7 75 18 116/67 96 07/24/16 00:00 97.3 84 18 99/59 96 07/23/16 19:39 96.0 93 18 105/70 96 07/23/16 15:45 95.5 66 18 129/74 98 07/23/16 14:30 97.7 68 14 134/72 96 Nasal Cannula 2 07/23/16 14:15 78 15 158/84 99 Nasal Cannula 2 07/23/16 14:00 62 15 154/81 99 Nasal Cannula 2 07/23/16 13:45 66 14 152/81 100 Nasal Cannula 2 07/23/16 13:31 62 14 168/78 97 Nasal Cannula 2 07/23/16 13:15 62 15 160/81 99 Nasal Cannula 2 07/23/16 13:08 97.8 74 15 168/82 96 Nasal Cannula 3 07/23/16 08:17 68 20 109/63 97 Room Air I/O 07/23/16 07/23/16 07/23/16 07/24/16 07/24/16 07/24/16 07:00 15:00 23:00 07:00 15:00 23:00 Intake Total 1200 ml 480 ml Output Total 450 ml 200 ml Balance 750 ml -200 ml 480 ml Intake Oral 480 ml IV Total 200 ml Other 1000 ml Output Urine Total 150 ml Emesis 200 ml Estimated Blood Loss 300 ml # Voids 1 1 3 4 # Bowel Movements 0 Result Diagram: 07/23/16 0329 07/23/16 0329 Imaging Last 24 hours Impressions Elbow X-Ray 07/22/162 Signed Impressions: Service Date/Time: Friday, July 22, 2016 23:10 - CONCLUSION: 1. Improvement in alignment of fracture dislocation left elbow. Randal Dougherty MD Elbow X-Ray 07/22/162127 Signed Impressions: Service Date/Time: Friday, July 22, 2016 21:44 - CONCLUSION: Fracture/dislocation of the ulnohumeral and radiocapitellar joints. Comminuted fracture of the proximal ulna with avulsion of the coronoid process. Santy Florez MD Objective Remarks LUE: +long arm splint. nvi. clean and dry. +swelling of fingers and hand Assessment & Plan Assessment and Plan 1) Left Elbow dislocation with radial head and proximal ulna fxs s/p ORIF - POD 1 -maintain splint -NWB -once ambulating and safe with pain controlled, ortho cleared for DC home -f/u with Satnam or PA in 1 week Nikunj Lee Jul 24, 2016 07:10
[2016-07-24] MEDS ORDERED: HYDR-3366 PO (07:12)
[2016-07-24] MEDS ORDERED: PERC7.5T13 PO ×2 (07:21→07:32)
[2016-07-24] MEDS ORDERED: ZOFR4TAB PO (07:21)
[2016-07-24] MEDS: MORPHINE SULFATE 4 MG/ML INJ IV PUSH PRN (07:23)
[2016-07-24] MEDS: ONDANSETRON HCL 4 MG/2 ML VIAL IV PRN ×2 (07:27→14:31)
--- NOTE | 2016-07-24 07:51 | HHI.PR ---
Subjective Remarks Follow-up left elbow fracture 07/23/16-patient seen and examined, nothing by mouth pending surgical repair. Pain currently controlled. Objective Vitals Vital Signs Date Time Temp Pulse Resp B/P Pulse Ox O2 Delivery O2 Flow Rate FiO2 07/24/16 04:00 97.7 75 18 116/67 96 07/24/16 00:00 97.3 84 18 99/59 96 07/23/16 19:39 96.0 93 18 105/70 96 07/23/16 15:45 95.5 66 18 129/74 98 07/23/16 14:30 97.7 68 14 134/72 96 Nasal Cannula 2 07/23/16 14:15 78 15 158/84 99 Nasal Cannula 2 07/23/16 14:00 62 15 154/81 99 Nasal Cannula 2 07/23/16 13:45 66 14 152/81 100 Nasal Cannula 2 07/23/16 13:31 62 14 168/78 97 Nasal Cannula 2 07/23/16 13:15 62 15 160/81 99 Nasal Cannula 2 07/23/16 13:08 97.8 74 15 168/82 96 Nasal Cannula 3 07/23/16 08:17 68 20 109/63 97 Room Air I/O 07/23/16 07/23/16 07/23/16 07/24/16 07/24/16 07/24/16 07:00 15:00 23:00 07:00 15:00 23:00 Intake Total 1200 ml 545 ml Output Total 450 ml 200 ml Balance 750 ml -200 ml 545 ml Intake Oral 480 ml IV Total 200 ml 65 ml Other 1000 ml Output Urine Total 150 ml Emesis 200 ml Estimated Blood Loss 300 ml # Voids 1 1 3 4 # Bowel Movements 0 Result Diagram: 07/23/16 0329 07/23/16 0329 Objective Remarks GENERAL: NAD SKIN: Warm and dry. HEAD: Normocephalic. EYES: No scleral icterus. No injection or drainage. NECK: Supple, trachea midline. No JVD or lymphadenopathy. CARDIOVASCULAR: Regular rate and rhythm without murmurs, gallops, or rubs. RESPIRATORY: Breath sounds equal bilaterally. No accessory muscle use. GASTROINTESTINAL: Abdomen soft, non-tender, nondistended. MUSCULOSKELETAL: No cyanosis, or edema. Left elbow in splint-neurovascular intact BACK: Nontender without obvious deformity. No CVA tenderness. Procedures Open treatment left elbow dislocation, open reduction internal fixation left radial head, open reduction internal fixation left proximal ulna A/P Problem List: (1) Fracture dislocation of left elbow joint ICD Code: S42.402A Status: Acute Assessment and Plan 51-year-old female with Left elbow fracture: s/p Open treatment left elbow dislocation, open reduction internal fixation left radial head, open reduction internal fixation left proximal ulna 07/23/16. DVT prophylaxis post procedure. Continue current pain management DVT prophylaxis; per orthopedic surgery Problem Qualifiers (1) Fracture dislocation of left elbow joint: Qualified Code: S42.402A - Fracture dislocation of left elbow joint, closed, initial encounter Vance Stephen MD Jul 24, 2016 07:51
[2016-07-24 08:00] VITALS: BP 124/71; PULSE 69; RESP 16; TEMP 97.6; O2SAT 96
--- NOTE | 2016-07-24 08:44 | HHI.PR ---
Subjective Remarks Follow-up left elbow fracture 07/23/16-patient seen and examined, nothing by mouth pending surgical repair. Pain currently controlled. 07/24/16-patient seen and examined, she started post left elbow repair. Complains of episode of nausea and emesis. Afebrile Objective Vitals Vital Signs Date Time Temp Pulse Resp B/P Pulse Ox O2 Delivery O2 Flow Rate FiO2 07/24/16 04:00 97.7 75 18 116/67 96 07/24/16 00:00 97.3 84 18 99/59 96 07/23/16 19:39 96.0 93 18 105/70 96 07/23/16 15:45 95.5 66 18 129/74 98 07/23/16 14:30 97.7 68 14 134/72 96 Nasal Cannula 2 07/23/16 14:15 78 15 158/84 99 Nasal Cannula 2 07/23/16 14:00 62 15 154/81 99 Nasal Cannula 2 07/23/16 13:45 66 14 152/81 100 Nasal Cannula 2 07/23/16 13:31 62 14 168/78 97 Nasal Cannula 2 07/23/16 13:15 62 15 160/81 99 Nasal Cannula 2 07/23/16 13:08 97.8 74 15 168/82 96 Nasal Cannula 3 I/O 07/23/16 07/23/16 07/23/16 07/24/16 07/24/16 07/24/16 07:00 15:00 23:00 07:00 15:00 23:00 Intake Total 1200 ml 545 ml Output Total 450 ml 200 ml Balance 750 ml -200 ml 545 ml Intake Oral 480 ml IV Total 200 ml 65 ml Other 1000 ml Output Urine Total 150 ml Emesis 200 ml Estimated Blood Loss 300 ml # Voids 1 1 3 4 # Bowel Movements 0 Result Diagram: 07/23/16 0329 07/23/16 0329 Imaging Last Impressions Elbow X-Ray 07/23/16 0000 Signed Impressions: Service Date/Time: July 12:16 - CONCLUSION: Fracture fixation with what appears to be excellent alignment. Scot Kenny MD Upper Extremity CT 07/22/16 0000 Signed Impressions: Service Date/Time: July 00:25 - CONCLUSION: 1. Posterior dislocation of the radial head at the radiocapitellar joint with an avulsed radial head bone fragment present anterior to the capitellum. 2. Abnormal widening of the humeroulnar joint without current dislocation. Comminuted fracture proximal ulna. Distal humerus intact. Randal Dougherty MD Objective Remarks GENERAL: NAD SKIN: Warm and dry. HEAD: Normocephalic. EYES: No scleral icterus. No injection or drainage. NECK: Supple, trachea midline. No JVD or lymphadenopathy. CARDIOVASCULAR: Regular rate and rhythm without murmurs, gallops, or rubs. RESPIRATORY: Breath sounds equal bilaterally. No accessory muscle use. GASTROINTESTINAL: Abdomen soft, non-tender, nondistended. MUSCULOSKELETAL: No cyanosis, or edema. Left elbow repair-neurovascular intact BACK: Nontender without obvious deformity. No CVA tenderness. Procedures Open treatment left elbow dislocation, open reduction internal fixation left radial head, open reduction internal fixation left proximal ulna A/P Problem List: (1) Fracture dislocation of left elbow joint ICD Code: S42.402A Status: Acute Assessment and Plan 51-year-old female with 1-Left elbow fracture: s/p Open treatment left elbow dislocation, open reduction internal fixation left radial head, open reduction internal fixation left proximal ulna 07/23/16. Management per orthopedic surgery.. Continue current pain management 2-DVT prophylaxis: Bilateral SCDs Problem Qualifiers (1) Fracture dislocation of left elbow joint: Qualified Code: S42.402A - Fracture dislocation of left elbow joint, closed, initial encounter Vance Stephen MD Jul 24, 2016 08:44
--- NOTE | 2016-07-24 08:46 | HHI.DS ---
Discharge Summary Admission Date Jul 22, 2016 at 22:40 Discharge Date: Jul 24, 2016 Admitting Diagnosis Left Elbow Fracture Dislocation (1) Fracture dislocation of left elbow joint ICD Code: S42.402A Procedures Open treatment left elbow dislocation, open reduction internal fixation left radial head, open reduction internal fixation left proximal ulna Brief History - From Admission History taken from patient and the physician reviewed 51-year-old female with no significant history presented to the ED after slipping and falling on water and landing on her left elbow. She states she was at work and walked around a corner and slipped on a puddle of water and landed on her left elbow. She states the pain is throbbing and not currently controlled. The pain is made worse with any movement. She denies any chest pain, shortness of breath, fever or chills. Elbow was unable to be reduced by ER physician. CBC/BMP: 07/23/16 0329 07/23/16 0329 Significant Findings Laboratory Tests Test 07/22/16 07/23/16 21:28 03:29 Neutrophils (%) (Auto) 70.3 % 75.3 % (16.0-70.0) (16.0-70.0) Estimat Glomerular Filtration 75 ML/MIN (>89) 82 ML/MIN (>89) Rate Red Blood Count 3.90 MIL/MM3 (4.00-5.30) Calcium Level 8.4 MG/DL (8.5-10.1) PE at Discharge GENERAL: NAD SKIN: Warm and dry. HEAD: Normocephalic. EYES: No scleral icterus. No injection or drainage. NECK: Supple, trachea midline. No JVD or lymphadenopathy. CARDIOVASCULAR: Regular rate and rhythm without murmurs, gallops, or rubs. RESPIRATORY: Breath sounds equal bilaterally. No accessory muscle use. GASTROINTESTINAL: Abdomen soft, non-tender, nondistended. MUSCULOSKELETAL: No cyanosis, or edema. Left elbow repair-neurovascular intact BACK: Nontender without obvious deformity. No CVA tenderness. Hospital Course She underwent Open treatment left elbow dislocation, open reduction internal fixation left radial head, open reduction internal fixation left proximal ulna of the Left elbow fracture 07/23/16. Management per orthopedic surgery. Pain management was provided accordingly. DVT was also provided. Vital remained stable and patient condition improved prior to discharge. Pt Condition on Discharge: Stable Discharge Disposition: Discharge Home Discharge Time: <= 30 minutes Discharge Instructions DIET: Follow Instructions for: Heart Healthy Diet Activities you can perform: Regular-No Restrictions Follow up Referrals: Orthopedics - 07/31/16 @ [facility] with Kai Hay MD PCP Follow-up - 1 Week New Medications: Ondansetron (Zofran) 4 Mg Tab 4 MG PO Q6HR PRN NAUSEA OR VOMITING #50 Ref 0 TAB Oxycodone-Acetaminophen (Percocet) 7.5-325 mg Tab 1 TAB PO Q4H PRN PAIN #40 Ref 0 TAB Sennosides-Docusate Sodium (Shauna-Colace) 8.6-50 Mg Tab 1 TAB PO BID PRN Constipation #20 Ref 0 TAB Vance Stephen MD Jul 24, 2016 08:46
[2016-07-24] MEDS ORDERED: PERI8.6T PO (08:47)
[2016-07-24] MEDS: SODIUM CHLORIDE 0.9% FLUSH 5 ML FLUSH FLUSH SCH (09:00)
[2016-07-24 10:15] VITALS: O2SAT 96
[2016-07-24] MEDS: oxyCODONE/ACETAMINOPHEN 7.5 MG/325 MG TAB PO PRN ×2 (10:38→14:30)
[2016-07-24 12:00] VITALS: BP 115/65; PULSE 65; RESP 16; TEMP 98.5; O2SAT 97
== END 2016-07-24 17:28 | disposition home or self-care (01) | DRG 512 ==
LOC: NEPC 21:02 → NEDA 22:40 → NEDH 07-23 02:40 → N06B 07-23 15:44
PROVIDERS: ADMIT Hospitalist; ATTEND Hospitalist
PROC: 0PSL04Z Reposition Left Ulna with Internal Fixation Device, Open Approach (ICD-10-PCS; 2016-07-23)
PROC: 0PSDXZZ Reposition Left Humeral Head, External Approach (ICD-10-PCS; 2016-07-23)
PROC: 0PSJ04Z Reposition Left Radius with Internal Fixation Device, Open Approach (ICD-10-PCS; principal; 2016-07-23 10:40)
DX: S52.122A Displaced fracture of head of left radius, initial encounter for closed fracture (principal); R11.2 Nausea with vomiting, unspecified; S52.002A Unspecified fracture of upper end of left ulna, initial encounter for closed fracture; W01.0XXA Fall on same level from slipping, tripping and stumbling without subsequent striking against object, initial encounter; Y93.9 Activity, unspecified; Y92.89 Other specified places as the place of occurrence of the external cause; Y99.0 Civilian activity done for income or pay; Z87.891 Personal history of nicotine dependence
CPT/HCPCS: 24600; 73070; 73200; 76000; 80048; 80053; 85025; 85610; 85730; 93005; 94150; 96374; 99152; 99153; C1713; J0131; J0690; J1170; J1580; J1885; J2175; J2250; J2270; J2405; J2710; J3010; J3370; J7050; J7120